=== PATIENT | female | born 1945 | race Caucasian/White ===

== ENCOUNTER 2019-11-20 11:02 | Inpatient (IN) ==
[~2019-11-20 11:02] MED LIST: KEFZOL 2 GM/D5W 2 GM/50 ML IVPB IV ONE
[2019-11-20] MEDS ORDERED: ZOFRAN IV ONE (12:14)
--- NOTE | 2019-11-20 12:19 | PROVIDER DOCUMENTATION ---
HPI-Musculoskeletal Pain/Inj - GENERAL Chief Complaint: Hip Injury Stated Complaint: FALL Time Seen by Provider: 11/20/19 12:04 Source: patient - HX OF PRESENT ILLNESS-MUSKULOSKELTAL Nature of Presenting Problem: 74 y/o WF c/o falling while brushing teeth this am injuring her lt hip. She denies hitting her head or any other injuries in the ER. EMS noted that pts lt hip was shortened and rotated. Pt only c/o pain to her LT hip. Quality of Pain: reports: aching, sharp Severity in ED: moderate Onset/Duration: 1-3 hours ago Timing: still present Modifying Factors: improves with: movement, palpation Any recent injury?: Yes Locality of Occurance: Home Similar Symptoms Previously?: No Recently seen or treated by another doctor?: No - FALL INJURY Location of Pain/Injury: reports: pelvis (lt hip) Pain Radiation: reports: no radiation Reason for Fall: reports: unknown Symptoms prior to fall:: reports: none Loss of Consciousness: no loss of consciousness Injury Associated Symptoms: reports: joint pain (lt hip pain) - BACK & NECK PAIN/INJURY Back/Neck Pain Location: denies: C-spine, T-spine, lumbar spine, sacrum, coccyx, paraspinous muscles, other Back/Neck Pain Radiation: denies: headache, shoulders, arm(s), Buttocks, Upper Legs, Lower Legs, Feet, Other Context / Method of Injury: reports: fall History of Chronic Neck or Back Pain?: No - TRUNK INJURY Location of Injury(s)/Pain: denies: chest, abdomen, ribs, pelvis, extends to back, generalized, other Context / Method of Injury: reports: fall Associated Symptoms: denies: denies symptoms, anxiety, arm pain, back/neck pain, chest pain, nausea/vomiting, shortness of breath, sensory/motor loss, pain with breathing, other - HIP/PELVIS PAIN/INJURY Hip Pain Location: reports: hip (L) Pain Radiation: reports: no radiation Context / Method of Injury: reports: fall Associated Symptoms: reports: denies symptoms - LOWER EXTREMITY PAIN/INJURY Lower Extremities Pain: hip: left Context / Method of Injury: reports: fell Associated Symptoms: reports: muscle spasms - UPPER EXTREMITY PAIN/INJURY Context / Method of Injury: denies: unknown, assault, burn, direct blow, fell, incised, motor vehicle accident, sports injury, twisted, other Associated Symptoms: denies: denies symptoms, muscle spasms, numbness in upper ext, sensory/motor loss, tingling in upper ext, weakness in upper ext, other Review of Systems - Adult - REVIEW OF SYSTEMS - ADULT Constitutional: reports: no symptoms reported, see HPI Eyes: reports: no symptoms reported, see HPI Ears, Nose, Mouth & Throat: reports: no symptoms reported, see HPI Cardiovascular: reports: no symptoms reported, see HPI Respiratory: reports: no symptoms reported, see HPI Gastrointestinal: reports: no symptoms reported, see HPI Genitourinary: reports: no symptoms reported, see HPI Musculoskeletal: reports: see HPI, joint pain (anterior lt hip pain) Integumentary: reports: no symptoms reported, see HPI Neurological: reports: no symptoms reported, see HPI Psychiatric: reports: no symptoms reported, see HPI Endocrine: reports: no symptoms reported, see HPI Hematologic/Lymphatic: reports: no symptoms reported, see HPI Allergic/Immunologic: reports: no symptoms reported, see HPI All Other Systems: Reviewed and Negative Past History - Adult - PAST MEDICAL HISTORY-ADULT Review of Records: reports: Nursing Assessment Review, Medications Reviewed, Social history reviewed & non-contributory. Physical Exam-Injury Related - Physical Exam-Injury Related Initial Vital Signs Reviewed: Yes General Appearance: appears well, alert, no apparent distress Eyes: PERRL/EOMI Head, Ears, Nose, Mouth & Throat: normocephalic/atraumatic, moist mucous membranes, normal ENT inspection Neck: non-tender, full range of motion, supple, normal inspection Respiratory: chest non-tender, lungs clear, normal breath sounds, no pleuratic chest pain, no respiratory distress, no accessory muscle use Cardiovascular: normal peripheral pulses, regular rate, rhythm, no edema, no gallop, no JVD, no murmur Abdominal Exam: normal bowel sounds, non tender, soft, no organomegaly, no pulsatile mass Lymphatic: no adenopathy Back Exam: normal inspection, no CVA tenderness, no vertebral tenderness Extremity: no pedal edema, no calf tenderness, deformity, tenderness (to lt anterior hip with palpation, N/V appears intact.) Integumentary: normal color, warm/dry 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 as tested, grossly normal, no motor/sensory deficits Psych/Mental Status: normal mood/affect, normal thought content, normal thought process, oriented x 3 - Glascow Coma Score Best Eye Response (Stephenson): (4) open spontaneously Best Verbal Response (Stephenson): (5) oriented Best Motor Response (Evelyne): (6) obeys commands Progress - PLAN OF CARE/RESULTS Progress/Plan/Lab Results: Vital Signs - 8 hr 11/20/19 11:38 Temperature 97.9 F Pulse Rate 78 Respiratory Rate 20 Blood Pressure 163/66 O2 Sat by Pulse Oximetry 95 Orders Category Date Time Status Nursing- Obtain EKG ONCE Care 11/20/19 12:05 Active XRAY PELVIS W/HIP 2-3VW LT [RAD] Stat Exams 11/20/19 12:05 Ordered cxr [CHEST-1 VIEW] [RAD] Stat Exams 11/20/19 12:05 Ordered BMP [BASIC METABOLIC PANEL] [CHEM] Stat Lab 11/20/19 12:34 Uncollected CBC WITH ELECTRONIC DIFF [HEME] Stat Lab 11/20/19 12:05 Uncollected PROTIME WITH INR [COAG] Stat Lab 11/20/19 12:05 Uncollected PTT [COAG] Stat Lab 11/20/19 12:05 Uncollected Ondansetron [Zofran] Med 11/20/19 12:14 Discontinued 4 mg IV NOW ONE EKG [EKG] Stat Ther 11/20/19 12:05 Ordered - CONSULTS/PCP/HOSPITALIST Notification #1 *Consult/PCP/Hospitalist*: Dr Haynes Time Discussed: 12:37 Reason/Comments: saw pt in the ER and is admitting Consult Disposition: Will see in ED, Admit Departure - Departure Date of Disposition Decision: 11/20/19 Time of Disposition Decision: 12:36 DIAGNOSIS: Hip fracture Disposition: ADMITTED INPATIENT 09 Certified Medical Emergency: Emergent Condition: Fair Referrals and Follow-Ups: Antonette Haynes MD [Primary Care Provider] - - Critical Care Note This patient required my direct & personal management of CC.: No Attestation - Physician/ AMANDO Attestation Patient care was provided by Advanced Practice Provider:: No The physician spent face to face time with patient:: Yes Advanced Practice Provider documentation review:: Supervising physician onsite and consulted in the evaluation and care of this patient. The physician did have a face to face encounter with the patient.
[2019-11-20] MEDS ORDERED: DILAUDID IV ONE (12:52)
--- NOTE | 2019-11-20 12:52 | Diag Imaging Result Doc PS360 ---
EXAM: XRAY PELVIS W/HIP 2-3VW LT INDICATION: fall, injury TECHNIQUE: 4 views COMPARISON: None. FINDINGS: There is linear irregularity through the left femoral neck suggesting a nondisplaced fracture with mild impaction. No other fracture or dislocation is appreciated. There are mild degenerative changes at the acetabular roofs. The surrounding soft tissues are essentially unremarkable. IMPRESSION: Fracture of the left femoral neck as described. Electronically signed by Davonte Mancilla 11/20/2019 12:50 PM
--- NOTE | 2019-11-20 12:53 | Diag Imaging Result Doc PS360 ---
EXAM: CHEST-1 VIEW INDICATION: surgical clearance TECHNIQUE: One view COMPARISON: 08/05/2019 FINDINGS: There is evidence of prior granulomatous disease, stable. There is stable mild elevation of the right hemidiaphragm. The lungs are grossly clear. There is no discrete pleural fluid collection or pneumothorax. The cardiomediastinal silhouette and central vasculature are grossly unremarkable. IMPRESSION: No evidence of acute pathology by plain radiograph. Electronically signed by Davonte Mancilla 11/20/2019 12:51 PM
[2019-11-20] MEDS ORDERED: TYLENOL PO PRN (13:28)
[2019-11-20 13:41] LABS: BASO# 0.02 X1000 (0.0-0.2); BASO% 0.1 % (0.0-0.8); EOS# 0.01 X1000 (0.0-0.7); EOS% 0.1 % (0.0-10.0); HEMATOCRIT 37.5 % (37.0-47.0); HEMOGLOBIN 12.5 g/dL (12.0-16.0); IMM GRAN# 0.04 X1000 (0.0-0.04); IMM GRAN% 0.3 % (0.0-0.5); LYMPH# 0.63 X1000 (1.2-3.4); LYMPH% 4.1 % (20.5-51.1); MCH 29.9 PG (27-31); MCHC 33.3 g/dL (33-37); MCV 89.7 FL (81-99); MONO# 0.57 X1000 (0.11-0.59); MONO% 3.7 % (1.7-9.3); MPV 10.2 FL (7.4-10.4); NEUT# 14.01 X1000 (1.4-6.5); NEUT% 91.7 % (42.2-75.2); PLT 237 X1000 (130-400); RBC 4.18 XMIL (4.2-5.4); RDW 13.3 % (11.5-14.5); WBC 15.28 X1000 (4.8-10.8)
[2019-11-20 13:50] LABS: AGAP 13; BUN 19 mg/dL (8-22); CHLORIDE 99 mmol/L (98-107); COSMO 277; CREATININE 0.8 mg/dL (0.5-0.9); ESTIMATED GFR > 60; GLUCOSE 121 mg/dL (70-104); POTASSIUM 3.5 mmol/L (3.5-5.1); SODIUM 137 mmol/L (136-145); TCO2 25 mmol/L (25-35)
[2019-11-20 13:57] LABS: INR 1.05; PROTIME 13.9 Seconds (11.0-16.0)
[2019-11-20 13:58] LABS: PTT 28.7 Seconds (22.3-41.8)
[2019-11-20] MEDS: NS 1,000 ML IV SCH ×2 (14:17→21:34)
[2019-11-20] MEDS: SODIUM CHLORIDE 0.9% INJ PRN (14:18)
--- NOTE | 2019-11-20 15:14 | HISTORY AND PHYSICAL ---
CHIEF COMPLAINT: Left hip pain. HISTORY OF PRESENT ILLNESS: Ms. Sirisha Hayward is a 74-year-old lady who is well known to me. She has a history of multiple medical problems including essential hypertension, osteoporosis for which she is taking Reclast injections annually, and a history of colon polyps. She tripped and fell this morning in the bathroom injuring her left hip. An x-ray of the left hip demonstrated a nondisplaced mildly impacted left femoral neck fracture. She does have a longstanding history of essential hypertension. Her blood pressure is generally well controlled at home. It was slightly elevated at 163/66 today, which I suspect is due to pain. She denies any chest pain, palpitations, or anginal equivalents. PAST MEDICAL HISTORY: Essential hypertension, osteoporosis, history of colon polyps. PAST SURGICAL HISTORY: Right cataract surgery, tonsillectomy with adenoidectomy. ALLERGIES: Sulfa. 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 She has never smoked. She does not consume alcoholic beverages. She has never been . FAMILY HISTORY: Her father had hypertension, ischemic heart disease status post [place] and at the age of 81. Her mother had hypertension and Alzheimer dementia and at the age of 96. MEDICATIONS: Vitamin D 3 50,000 units monthly, Reclast injections annually, metoprolol SR 100 mg daily, Caltrate 600+ D b.i.d. REVIEW OF SYSTEMS: Weight: She denies any recent weight gain or weight loss. HEENT: No loss of visual or auditory acuity. CV: No chest pain, palpitations, or anginal equivalents. Pulmonary: No shortness of breath, PND or orthopnea. GI: No reflux, dysphagia, melena, hematochezia, change in bowel habits or rectal bleeding. Endocrine: No polyuria, no polydipsia. No cold or heat intolerance. Skin: No easy bruisability. : No leakage of urine with coughing or laughing. Musculoskeletal: See HPI. Neurologic: No migraines or seizures. PHYSICAL EXAMINATION: GENERAL: This is a well-developed, well-nourished, 74-year-old lady in no apparent distress. VITAL SIGNS: Temperature 97.9 degrees, pulse 78, respiratory rate 20, BP 163/66. HEENT: Fundi with arteriolar wall thickening. Pupils equal, round, reactive to light. Extraocular eye movements intact. TMs without bullae. NECK: Supple. No masses, JVD or bruits. CV: Regular rate and rhythm. LUNGS: Clear. ABDOMEN: Soft, nontender with active bowel sounds. No hepatosplenomegaly. No abdominal bruits. EXTREMITIES: Without edema. MUSCULOSKELETAL: The left leg is shorter and is rotated outward. NEUROLOGIC: Nonfocal. ASSESSMENT AND PLAN.: 1. Nondisplaced slightly impacted left femoral neck fracture. [facility]. I will begin Mcfadden's traction at 5 pounds. I will give her Dilaudid 1 mg intravenous now, then Dilaudid 1 mg intravenous every 3 hours as needed for pain. I will consult Dr. Ruggiero who is one of the local orthopedic surgeons for surgical evaluation. 2. Hypertension. Blood pressure is controlled. I will continue metoprolol extended release 100 mg daily. We will consult physical therapy to see her after surgery. We will consult Development [facility] for rehab placement. Given her clinical history and comorbid conditions, I believe that admission to the hospital is absolutely necessary for surgical correction of the fractured hip. I anticipate that she will be in the hospital for at least 2 midnights, and I will therefore place her in inpatient status. I will begin Lovenox 40 mg subcutaneously daily for deep vein thrombosis prophylaxis. cc: Leticia Haynes MD
[2019-11-20] MEDS: DILAUDID IV PRN ×2 (18:02→21:20)
[2019-11-20] MEDS: LEVAQUIN PO SCH (18:03)
[2019-11-20 18:21] LABS: URINE SOURCE CATH
[2019-11-20 18:23] LABS: BILIRUBIN URINE NEGATIVE (NEGATIVE); BLOOD URINE MODERATE (NEGATIVE); COLOR YELLOW; GLUCOSE URINE NEGATIVE (NEGATIVE); KETONE URINE TRACE mg/dL (NEGATIVE); LEUKOCYTES URINE NEGATIVE (NEGATIVE); NITRITE URINE NEGATIVE (NEGATIVE); PH URINE 5.5; PROTEIN URINE NEGATIVE (NEGATIVE); SP GRAVITY URINE 1.016; TURBIDITY URINE CLEAR (CLEAR); UR EPITHELIAL CELLS <10 /HPF (<10); URINE BACTERIA NEGATIVE /HPF; URINE WBC <10 /HPF (<10); UROBILINOGEN URINE NORMAL (NORMAL)
--- NOTE | 2019-11-20 20:57 | CONSULTATION ---
DATE OF CONSULTATION: 11/20/2019 CHIEF COMPLAINT: Left hip pain. REQUEST PHYSICIAN: Dr. Haynes. HISTORY OF PRESENT ILLNESS: This very pleasant, 74-year-old, female seen and examined in bed 418A. She unfortunately sustained a fall while at home early this morning in her bathroom. She presented to the emergency department and has been admitted secondary to a subcapital femoral neck fracture to the left hip. She currently states her pain is well controlled. She is currently in traction. She denies having any numbness, tingling, fevers chills. No chest pain, shortness of breath. PAST MEDICAL HISTORY: Includes hypertension, osteoporosis. History of colon polyps. PAST SURGICAL HISTORY: Cataract surgery, tonsillectomy and adenoidectomy. MEDICATIONS: Vitamin D 3, Reclast, metoprolol, Caltrate. ALLERGIES: Sulfa. 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 No tobacco, no alcohol, no illicit drugs. FAMILY HISTORY: Father with heart disease. Mother with heart disease and Alzheimer's dementia. REVIEW OF SYSTEMS: Ten point review of systems negative except stated otherwise above in the HPI. PHYSICAL EXAMINATION: General: She is alert, oriented x3 to person, place, and time. HEAD: Normocephalic atraumatic. EYES: Pupils equal, round, react to light and accommodation. Extraocular muscles intact bilaterally. EARS: No otalgia or otorrhea. THROAT: Is not injected.Neck: Supple. Trachea is midline. Cardiovascular: Regular rate and rhythm. Respiratory: No distress noted. Chest rise equal bilaterally. Abdomen: Soft, nontender. Musculoskeletal: Examination to the left lower extremity, she has got a shortened and externally rotated left lower extremity. Positive log roll test. No open wounds or sores. Skin is warm, dry, and intact. Negative Homans. Grossly neurovascularly intact distally. ASSESSMENT: 1. Left displaced subcapital femoral neck fracture status post fall 11/20/2019. 2. History of hypertension, controlled. RECOMMENDATIONS: From orthopedic standpoint. I discussed with the patient. I recommend a left hip hemiarthroplasty secondary to her fracture displacement over left subcapital femoral neck fracture. I went over the risks, benefits, complications, indications associated with surgical procedure. I went over the risks of infections, DVT, pulmonary embolism, neurovascular injury, risk of continued pain and need for further surgery if complications arise. She agrees and wishes to proceed. We will keep her NPO after midnight and obtain surgical consent. We will continue to follow up postop as well. Thank you for allowing me to participate in care this very pleasant patient. cc: DO Leticia Paredes MD
[2019-11-20] MEDS: CALTRATE 600 + D PO SCH (21:20)
[2019-11-21] MEDS: DILAUDID IV PRN ×3 (01:39→08:26)
[2019-11-21] MEDS: TOPROL XL PO SCH ×2 (06:25→08:32)
[2019-11-21] MEDS: NS 1,000 ML IV SCH ×3 (07:22→20:45)
[2019-11-21] MEDS ORDERED: NEOSPORIN G.U. IRRIGANT ONE (07:50)
[2019-11-21] MEDS ORDERED: KEFZOL 1 GM/D5W 2 GM/100 ML IVPB ONE (07:50)
--- NOTE | 2019-11-21 08:00 | PROGRESS NOTE ---
DATE: 11/21/2019 SUBJECTIVE: The patient is awake, alert, and in the bed. She is speaking with family members and her transportation security officer. She voices no acute complaints, other than the fact that her back is very stiff having laid on it all night in the hospital bed. She denies any shortness of breath or other difficulty. OBJECTIVE: Vital Signs: 98.9, 78, 17, 120/53, 93% saturated on room air. PHYSICAL EXAMINATION: General: The patient is a well-developed, well-nourished white female in no acute distress. She is awake, alert, oriented, conversive and appropriate. Lungs: Clear to auscultation. Cardiovascular: Regular. Abdomen: Shows bowel sounds are present. LABORATORY: From yesterday, the patient's white cell count was 15.28, hematocrit 37.5, BUN 19, creatinine 0.8, glucose 121. ASSESSMENT AND PLAN: 1. The patient has a nondisplaced impacted left femoral neck fracture. She has reasonable pain control with Dilaudid. Orthopedic consultation has taken place, and she is scheduled for surgery this morning. 2. The patient has a history of hypertension; it is well controlled. We will plan to continue the same medications postoperatively. 3. The patient will need deep vein thrombosis prophylaxis. 4. Physical therapy will ensue after surgery. Discharge plans will likely include a rehabilitation stay. cc: MD Leticia Thompson MD
[2019-11-21] MEDS ORDERED: ZOFRAN ONE (08:26)
[2019-11-21] MEDS ORDERED: DIPRIVAN 1% ONE (08:26)
[2019-11-21] MEDS ORDERED: DECADRON ONE ×2 (08:26→09:50)
[2019-11-21] MEDS ORDERED: FENTANYL ONE (08:27)
[2019-11-21] MEDS ORDERED: CYKLOKAPRON 1,000 MG/NS 1,000 MG/100 ML IVPB ONE (09:57)
[2019-11-21] MEDS ORDERED: OFIRMEV 1000 MG/ISOTONIC SOLN 1,000 MG/100 ML BOTTLE ONE (10:04)
[2019-11-21] MEDS ORDERED: SENSORCAINE 0.25%/EPI 1:200,000 ONE (10:26)
[2019-11-21] MEDS: DILAUDID ONE ×2 (11:11→11:31)
[2019-11-21] MEDS ORDERED: OXY IR ONE (11:27)
[2019-11-21] MEDS ORDERED: MILK OF MAGNESIA PO PRN (12:28)
[2019-11-21] MEDS ORDERED: ZOFRAN IV PRN (12:28)
[2019-11-21] MEDS ORDERED: HALDOL IV PRN (12:30)
--- NOTE | 2019-11-21 12:31 | Diag Imaging Result Doc PS360 ---
EXAM: HIP 1 VIEW LEFT INDICATION: post op TECHNIQUE: One view COMPARISON: 11/20/2019 FINDINGS: There has been a recent left hip arthroplasty. The arthroplasty hardware is in the expected position. There is no evidence of periprosthetic fracture. Skin lauryn are seen at the lateral aspect of the hip. IMPRESSION: Satisfactory postoperative hip. Electronically signed by Davonte Mancilla 11/21/2019 12:28 PM
[2019-11-21] MEDS: PHENERGAN IV PRN (13:38)
[2019-11-21] MEDS: MORPHINE IV PRN ×2 (13:38→19:02)
--- NOTE | 2019-11-21 14:24 | OPERATIVE NOTE ---
PROCEDURE DATE: 11/21/2019 PREOPERATIVE DIAGNOSIS: Displaced left subcapital femoral neck fracture status post fall 11/20/2019. POSTOPERATIVE DIAGNOSIS: Displaced left subcapital femoral neck fracture status post fall 11/20/2019. PROCEDURE: Left hip hemiarthroplasty. SURGEON: Davie Ruggiero D.O. EDGE GLUER: None. ANESTHESIA: General LMA. ESTIMATED BLOOD LOSS: 50 mL. FLUIDS: Normal saline per anesthesia. DRAINS: None. ANTIBIOTICS: 2 g Ancef IV preoperatively. COMPLICATION: None. IMPLANTS: 1. DePuy Actis size 6 high offset, +1.5 femoral stem. 2. A 47 mm outer diameter, 28 mm inner diameter bipolar head. DISPOSITION: Stable to recovery room. INDICATION FOR PROCEDURE: This is a very pleasant 74-year-old female. I saw her after being consulted on the orthopedic floor. She was found to have a displaced left femoral neck fracture. I discussed doing a left vincent hip arthroplasty with her. I went over the risks, benefits, complications, indications associated with the surgical procedure. She agreed and wished to proceed and a written consent was signed and placed in the chart. Left lower extremity marked in preoperative area. DETAILED PROCEDURE: Patient was taken back to the operative suite, placed on the operating table in a supine position. She was then given the benefit of general anesthetic and all bony problems padded well. She was placed in the lateral decubitus position. Axillary roll was placed and all bony prominences padded well. The left lower extremity was sterilely prepped and draped in usual sterile fashion. Time-out was performed identifying the correct patient, procedure and site to be performed. All in attendance were in agreement. Preoperative antibiotics were given and confirmed. A standard anterolateral hip incision was made with a 15 blade scalpel through the skin and subcutaneous tissue. Sharp dissection was taken down to the iliotibial band. The iliotibial band was released in line with the skin incision and a Charnley retractor was placed. Traction was then placed deep to the iliotibial band. The gluteus medius and minimus were resected off of the greater trochanter. A T capsulotomy was then performed. I then brought the femoral neck into view. A clean cut was made a fingerbreadth above the lesser trochanter. We removed the fractured femoral head which was completely displaced. I then trialed for a size from the acetabulum, it was 47, had excellent fit and fill. I then brought the hip into external rotation and flexion and then used a box osteotome to gain access to the proximal aspect of the femur, then incrementally broached up to a size 6 femoral stem, it had excellent fit and fill. I trialed with a 6 stem with high offset with a +1.5 neck length, reduced the hip and took the hip through range of motion. It was stable throughout all planes. I then dislocated the hip and removed all trial components. I thoroughly irrigated the hip real well with pulsatile lavage of normal saline. I then impacted my final femoral stem, cleaned the trunnion and placed my femoral head in position, impacted it in position. Reduced the hip and took it though range of motion. Once again, it was stable. I then thoroughly irrigated the hip once again. I then reapproximated the capsule with [id number] #1 Vicryl. The gluteus medius and minimus were then reattached with a [id number] transosseous 2 0 FiberWire, then oversewn with a running locking #1 Vicryl. The IT band was then closed with a running locking #1 Vicryl, inverted 2-0 Vicryl, lauryn on the skin. 30 mL of 0.25% plain Marcaine was used for local anesthetic. Sterile dressing was applied in the form of Xeroform, 4x4s, ABDs and tape. She tolerated the procedure well, was transferred to PACU in stable condition. DISPOSITION: Patient be admitted back to the Medical Surgical floor. She is okay to weight bear as tolerated. Hopefully get her Alvarez out tomorrow. She will continue antibiotics for 24 hours. We will start her on DVT prophylaxis, Eliquis 2.5 mg twice a day. cc: DO Leticia Paredes MD
[2019-11-21] MEDS: CALTRATE 600 + D PO SCH ×2 (16:04→20:45)
[2019-11-21] MEDS: KEFZOL 1 GM/D5W 1 GM/50 ML IVPB IV SCH ×2 (16:08→23:51)
[2019-11-21] MEDS: TYLENOL PO SCH (18:12)
[2019-11-21] MEDS: OXY IR PO PRN ×2 (20:44→23:52)
[2019-11-21] MEDS: ELIQUIS PO SCH (20:45)
[2019-11-21] MEDS: COLACE PO SCH (20:45)
[2019-11-21] MEDS: LEVAQUIN PO SCH (20:46)
[2019-11-22] MEDS: TYLENOL PO SCH ×3 (03:24→18:49)
[2019-11-22] MEDS: OXY IR PO PRN ×4 (05:09→16:40)
[2019-11-22] MEDS: NS 1,000 ML IV SCH ×2 (05:36→21:00)
[2019-11-22 07:44] LABS: HEMATOCRIT 33.9 % (37.0-47.0)
[2019-11-22 08:16] LABS: AGAP 9; BUN 11 mg/dL (8-22); CALCIUM 8.6 mg/dL (8.8-10.2); CHLORIDE 104 mmol/L (98-107); COSMO 281; CREATININE 0.7 mg/dL (0.5-0.9); ESTIMATED GFR > 60; GLUCOSE 107 mg/dL (70-104); POTASSIUM 4.4 mmol/L (3.5-5.1); SODIUM 141 mmol/L (136-145); TCO2 28 mmol/L (25-35)
[2019-11-22] MEDS: FERROUS SULFATE PO SCH (08:28)
[2019-11-22] MEDS: ELIQUIS PO SCH ×2 (08:31→21:00)
[2019-11-22] MEDS: CALTRATE 600 + D PO SCH ×2 (08:31→21:00)
[2019-11-22] MEDS: KEFZOL 1 GM/D5W 1 GM/50 ML IVPB IV SCH (08:31)
[2019-11-22] MEDS: TOPROL XL PO SCH (08:32)
[2019-11-22] MEDS: PERIDEX MT SCH ×2 (08:32→21:00)
[2019-11-22] MEDS: LEVAQUIN PO SCH (08:32)
--- NOTE | 2019-11-22 10:34 | PROGRESS NOTE ---
DATE: 11/22/2019 SUBJECTIVE: The patient is awake in the bed. She has no complaints other than pain. She had a few minor questions about her recovery which were answered. There is a family member present. Dr. Ruggiero came in during the interview and examination. OBJECTIVE: Vital Signs: 99.2, 80, 20, 124/52, 100% saturated on 80 of nasal cannula. Lungs: The patient's lungs are clear. Cardiovascular: Regular. Neurologic: She is alert oriented conversive and appropriate. She is moving in the bed freely. LABORATORY: Hemoglobin is 11.0, hematocrit 33.9, some moderate drop from yesterday's reading. She will have a repeat test ordered for tomorrow. ASSESSMENT AND PLAN: 1. Nondisplaced impacted left femoral neck fracture has been repaired surgically by Dr. Ruggiero. The patient has pain medications on board. I am sure that she will start physical therapy soon. We will continue DVT prophylaxis with low-dose Xarelto. 2. Hypertension is well controlled. She is on her home medications. 3. Deep venous thrombosis prophylaxis as mentioned above. 4. Physical therapy. 5. The patient's hemoglobin will be redrawn in the morning. We will continue to follow this. cc: MD Leticia Thompson MD
[2019-11-22] MEDS: COLACE PO SCH (20:59)
[2019-11-23] MEDS: TYLENOL PO SCH ×2 (02:47→10:10)
[2019-11-23] MEDS: OXY IR PO PRN ×3 (05:53→18:46)
[2019-11-23] MEDS: NS 1,000 ML IV SCH ×4 (05:54→18:09)
[2019-11-23 07:23] LABS: HEMATOCRIT 32.1 % (37.0-47.0); HEMOGLOBIN 10.1 g/dL (12.0-16.0)
[2019-11-23] MEDS: ELIQUIS PO SCH (10:09)
[2019-11-23] MEDS: TOPROL XL PO SCH (10:09)
[2019-11-23] MEDS: LEVAQUIN PO SCH (10:09)
[2019-11-23] MEDS: PERIDEX MT SCH (10:11)
--- NOTE | 2019-11-23 11:48 | PROGRESS NOTE ---
DATE: 11/23/2019 SUBJECTIVE: She is postoperative day number 2 following a left hip arthroplasty. Pain is generally well controlled on oral OxyIR. She is undergoing physical therapy. Blood pressure remains stable. OBJECTIVE: Vital Signs: Systolic blood pressures are ranging from 119 to 131; whereas, her diastolic blood pressures have been in the range of 45 to 52, temperature 98.1 degrees, pulse 74, respirations 16, blood pressure 119/45. Cardiovascular: Regular rate and rhythm. Lungs: Clear. Abdomen: Soft, nontender with active bowel sounds. DIAGNOSTIC DATA: Hemoglobin and hematocrit were 10.1 and 32.1. ASSESSMENT AND PLAN: 1. Left hip fracture, status post left hip hemiarthroplasty. We will continue physical therapy and pain management. I have spoken to Lucretia in the [facility], and Ms. Hayward is interested in short term rehab at [place], [place]. We will continue Lovenox for deep vein thrombosis prophylaxis. 2. Hypertension. Blood pressure is stable. We will continue metoprolol ER 100 mg daily. cc: Leticia Haynes MD
--- NOTE | 2019-11-23 12:18 | ORTHOPAEDICS PROGRESS NOTE ---
DATE: 11/23/2019 SUBJECTIVE DATA: Ms. Hayward was seen postop her left femoral neck fracture. She reports her pain level is a 3/10 at this time. She reports that she has been sitting on the side of the bed without difficulty. She states she got up to the bedside commode and did not have any problems. She reports that her primary doctor has placed her on Eliquis for DVT prophylaxis after the hip replacement. OBJECTIVE DATA: There is good sensation to the left lower extremity. There is negative Homans sign. Her bandages are clean and dry. There are good pedal pulses. There is good capillary refill in the toes. The patient can flex her quadriceps muscles without difficulty. There is some mild swelling to the left lower extremity. ASSESSMENT: Left femoral neck fracture with bipolar hip replacement. PLAN: At this time, we are okay with Ms. Hayward being discharged to rehab. She will need to follow up with Dr. Ruggiero in his clinic when she gets out of rehab. Dictated by HELADIO Lopez for Kiran Cortez MD cc: HELADIO Lopez MD M. Neel Roberts, MD
[2019-11-23] MEDS: CALTRATE 600 + D PO SCH (18:09)
[2019-11-23] MEDS: FERROUS SULFATE PO SCH (18:09)
[2019-11-24] MEDS: OXY IR PO PRN ×3 (00:35→22:46)
[2019-11-24] MEDS: CALTRATE 600 + D PO SCH ×3 (00:45→22:46)
[2019-11-24] MEDS: SODIUM CHLORIDE 0.9% INJ PRN (00:45)
[2019-11-24] MEDS: PERIDEX MT SCH ×3 (00:45→22:48)
[2019-11-24] MEDS: ELIQUIS PO SCH ×3 (00:45→22:47)
[2019-11-24] MEDS: PHENERGAN IV PRN (00:45)
[2019-11-24] MEDS: COLACE PO SCH ×2 (00:46→22:47)
[2019-11-24] MEDS: TYLENOL PO SCH ×4 (00:48→22:48)
[2019-11-24 06:54] LABS: HEMATOCRIT 31.2 % (37.0-47.0); HEMOGLOBIN 10.1 g/dL (12.0-16.0)
[2019-11-24] MEDS: TOPROL XL PO SCH (13:06)
[2019-11-24] MEDS: FERROUS SULFATE PO SCH (13:06)
[2019-11-24] MEDS: LEVAQUIN PO SCH (13:06)
--- NOTE | 2019-11-24 13:55 | PROGRESS NOTE ---
DATE: 11/24/2019 SUBJECTIVE: Ms. Hayward has a history of hypertension. Blood pressure is stable. Today her blood pressure was 142/57. She denies any chest pain, palpitations, or anginal equivalents. She is postoperative day #3 following hip surgery. She has been able to sit up on the edge of the bed for 1 hour. She still has some hip pain with the rotating over in bed. Her pain is generally well controlled on OxyIR. OBJECTIVE: Vital signs: Temperature 98.3 degrees, pulse 89, respirations 16, blood pressure 142/57. Cardiovascular: Regular rate and rhythm. Lungs: Clear. Abdomen: Soft, nontender with active bowel sounds. ASSESSMENT AND PLAN: 1. Nondisplaced fracture of the left femoral neck, status post surgical repair. We will continue physical therapy. She is now off oxygen. She is voiding without a Alvarez. The pain is generally well controlled on OxyIR. She will have a rehab bed available in [place] tomorrow. 2. Hypertension. Blood pressure is stable. We will continue metoprolol XR 100 mg daily. cc: Leticia Haynes MD
[2019-11-24] MEDS: NS 1,000 ML IV SCH (18:55)
[2019-11-24] MEDS ORDERED: CALMOSEPTINE OINTMENT TOP PRN ×2 (20:09)
[2019-11-25] MEDS: TYLENOL PO SCH ×3 (06:01→13:45)
[2019-11-25] MEDS: CALMOSEPTINE OINTMENT TOP SCH ×3 (06:02→13:45)
[2019-11-25] MEDS: NS 1,000 ML IV SCH ×2 (07:00→13:45)
[2019-11-25 08:46] LABS: HEMATOCRIT 33.8 % (37.0-47.0); HEMOGLOBIN 10.7 g/dL (12.0-16.0)
[2019-11-25] MEDS: FERROUS SULFATE PO SCH (08:52)
[2019-11-25] MEDS: ELIQUIS PO SCH (08:52)
[2019-11-25] MEDS: PERIDEX MT SCH (08:52)
[2019-11-25] MEDS: TOPROL XL PO SCH (08:52)
[2019-11-25] MEDS: CALTRATE 600 + D PO SCH (08:52)
[2019-11-25] MEDS: LEVAQUIN PO SCH (08:52)
[2019-11-25 11:57] VITALS: BP 132/55
--- NOTE | 2019-11-25 12:33 | DISCHARGE SUMMARY ---
ADMISSION DATE: 11/20/2019 DISCHARGE DATE: 11/25/2019 DISCHARGE DIAGNOSES: 1. Nondisplaced fracture with mild impaction of the left femoral neck, status post bipolar hemiarthroplasty of the left hip. 2. Essential hypertension. 3. Osteoporosis. 4. Acute blood loss anemia. DISCHARGE INSTRUCTIONS: The patient will be transferred via ambulance to undergo short term rehab at [facility] in [place], [place]. ACTIVITY: As tolerated. DIET: Regular diet. MEDICATIONS: Metoprolol XR 100 mg daily, Caltrate 600+D b.i.d., ferrous sulfate 325 mg daily, Colace 100 mg b.i.d., Oxy IR 5 mg p.o. every 3 hours p.r.n. pain greater than 5 on a scale of 1 to 10, Eliquis 2.5 mg b.i.d. PHYSICAL EXAMINATION: General: This is a well-developed, well-nourished 74-year-old lady in no apparent distress. Vital Signs: She is afebrile. Her vital signs are stable. Cardiovascular: Regular rate and rhythm. Lungs: Clear. Abdomen: Soft and nontender with active bowel sounds. HISTORY AND HOSPITAL COURSE: Ms. Hayward fell and sustained a nondisplaced mildly impacted left femoral neck fracture. She was initially admitted to [facility] with Mcfadden's traction and IV Dilaudid for pain. Dr. Ruggiero performed a bipolar hemiarthroplasty of the left hip on 11/21/2019. Her initial blood counts were 12 and 37.5. Her blood counts were dropped to 10.1 and 31.2 at discharge. We will give her ferrous sulfate 325 mg daily for 1 month. We were gradually able to wean her off O2. The Alvarez was discontinued, and she was voiding without the use of a Alvarez. Physical therapy was consulted to see the patient. She began physical therapy and was sitting on the edge of her bed. Her diet was advanced as tolerated, and she was tolerating a regular diet at the time of discharge. She was transitioned to oral OxyIR with good control of her pain. She will take Xarelto 2.5 mg b.i.d. for DVT prophylaxis for a period of 1 month. She was felt to be an excellent candidate for short term rehab, and arrangements were made to transfer her via ambulance to undergo short term rehabilitation. She has a longstanding history of hypertension. Blood pressure remains stable on metoprolol XR 100 mg daily. She denied any chest pain, palpitations, or anginal equivalents. Having reached maximum hospital benefit, the patient was discharged in stable condition. cc: Leticia Haynes MD
== END 2019-11-25 13:49 | DRG 470 ==
LOC: SUPCPDRO → ED 11:02 → 4N 13:31
PROVIDERS: ADMIT Internal Medicine; ATTEND Internal Medicine